=== PATIENT | female | born 1945 | race Caucasian/White ===

== ENCOUNTER 2019-08-11 05:58 | Day surgery (SDC) | payer OTHER ==
[2019-08-10 11:24] LABS: BASOPHILS % (AUTO) 0.6 % (0-1); EOSINOPHILS # (AUTO) 0.2 X10'3 (0-0.9); EOSINOPHILS % (AUTO) 4.3 % (0-6); HEMATOCRIT 42.7 % (35.0-45.0); LYMPHOCYTES # (AUTO) 1.3 X10'3 (1.1-4.8); LYMPHOCYTES % (AUTO) 24.3 % (21-51); MEAN CORPUSCULAR HEMOGLOBIN 29.7 PG (27.0-31.0); MEAN CORPUSCULAR HGB CONC 32.8 g/dL (33.0-36.5); MEAN CORPUSCULAR VOLUME 90.6 FL (78-98); MONOCYTES # (AUTO) 0.4 X10'3 (0-0.9); MONOCYTES % (AUTO) 8.2 % (2-12); NEUTROPHILS # (AUTO) 3.3 X10'3 (1.8-7.7); NEUTROPHILS % (AUTO) 62.6 % (42-75); PLATELET COUNT 230 X10'3 (140-440); RED BLOOD COUNT 4.71 X10'6 (4.20-5.60); RED CELL DISTRIBUTION WIDTH 14.4 % (11.5-14.5); WHITE BLOOD COUNT 5.3 X10'3 (4.5-11.0)
[2019-08-10 11:30] LABS: ALBUMIN 3.9 G/DL (3.4-5.0); ANION GAP 9 (8-16); BLOOD UREA NITROGEN 33 MG/DL (7-18); BUN/CREATININE RATIO 30.3 (6.6-38.0); CALCIUM 9.7 MG/DL (8.5-10.1); CHLORIDE 107 MMOL/L (99-107); CREATININE 1.09 MG/DL (0.40-0.90); GLUCOSE 107 MG/DL (70-104); POTASSIUM 4.4 MMOL/L (3.5-5.1); SODIUM 142 MMOL/L (135-145); TOTAL CARBON DIOXIDE 25.9 MMOL/L (24-32); eGFR 49 ML/MIN
[2019-08-10 11:33] LABS: PARTIAL THROMBOPLASTIN TIME 25 SECONDS (22-32)
[~2019-08-11] VITALS: Ht 172.7 cm; Wt 105.9 kg
[2019-08-11] VITALS (11 sets, daily range): BP systolic 116–157; BP diastolic 46–77
[2019-08-11] MEDS ORDERED: diphenhydrAMINE 25mg capsule PO PRN (06:10)
[2019-08-11] MEDS ORDERED: normal saline 1,000 ML IV SCH (06:10)
[2019-08-11] MEDS ORDERED: LORazepam 0.5 MG tablet PO PRN (06:10)
[2019-08-11] MEDS ORDERED: NAPR220T67 PO (06:20)
[2019-08-11] MEDS ORDERED: LIDOcaine/PRILOcaine 5gm cream TP ONE (06:20)
[2019-08-11] MEDS ORDERED: SYN0.112T PO (06:20)
[2019-08-11] MEDS ORDERED: LUTE6CAP PO (06:20)
[2019-08-11] MEDS ORDERED: ACET-890 PO (06:20)
[2019-08-11] MEDS ORDERED: DOCU-21 PO (06:20)
[2019-08-11] MEDS ORDERED: DULO-31 PO (06:20)
[2019-08-11] MEDS ORDERED: heparin 1,000unit/ml 10ml vial 10 ML ONE (07:26)
[2019-08-11] MEDS ORDERED: midazolam 2 mg/2 ml injection ONE (07:26)
[2019-08-11] MEDS ORDERED: iohexol 350 MG/ML 50ML vial IV ONE (07:26)
[2019-08-11] MEDS ORDERED: verapamil 2.5 mg/ml inj IV ONE (07:26)
[2019-08-11] MEDS ORDERED: fentaNYL/PF 50MCG/1 ML 2ML syringe ONE (07:26)
[2019-08-11] MEDS ORDERED: nitroGLYCERIN-Tridil 50MG/D5W 250 ML IV ONE (07:26)
[2019-08-11] MEDS ORDERED: iohexol 350MG/ML 100ml bottle IV ONE (07:27)
[2019-08-11] MEDS ORDERED: LIDOcaine 1% (10mg/ml)w/preservative injection 20ml MDV ONE (08:03)
[2019-08-11] MEDS ORDERED: normal saline 1000ml 1,000 ML IV SCH (09:00)
== END 2019-08-11 13:47 | disposition home or self-care (01) ==
LOC: SSTAY O 05:58
PROVIDERS: ATTEND Internal Medicine Cardiovascular Disease
DX: R94.31 Abnormal electrocardiogram [ECG] [EKG] (principal); I25.111 Atherosclerotic heart disease of native coronary artery with angina pectoris with documented spasm; I10 Essential (primary) hypertension; E78.5 Hyperlipidemia, unspecified; E66.9 Obesity, unspecified; Z68.35 Body mass index [BMI] 35.0-35.9, adult; F32.9 Major depressive disorder, single episode, unspecified; E03.9 Hypothyroidism, unspecified; M85.80 Other specified disorders of bone density and structure, unspecified site; Z98.890 Other specified postprocedural states; Z90.710 Acquired absence of both cervix and uterus; Z79.899 Other long term (current) drug therapy; Z87.891 Personal history of nicotine dependence; Z79.01 Long term (current) use of anticoagulants
CPT/HCPCS: 36415; 76937; 80048; 85025; 85610; 85730; 93005; 93458; 99152; 99153; C1769; C1894; J1644; J2001; J2250; J3010; J7030; Q9967; A5120; J3490